=== PATIENT | female | born 1940 | race Caucasian/White ===

== ENCOUNTER → 2024-04-12 | Outpatient (CLI) | payer MEDICARE, BC ==
[2024-04-12 14:47] LABS: INR 2.3 (<1.2); Partial Thromboplastin Time 34.2 sec (22.0-30.0)
[2024-04-12 19:48] LABS: Basophils # (A) 0.03 X 10*3/uL (0.00-0.10); Basophils % (A) 0.4 %; Eosinophils # (A) 0.09 X 10*3/uL (0.04-0.35); Eosinophils % (A) 1.3 %; HCT 36.3 % (37.2-46.3); HGB 12.3 g/dL (12.0-15.0); Lymphocytes # (A) 1.47 X 10*3/uL (0.90-5.00); Lymphocytes % (A) 20.8 %; MCH 31.9 pg (27.0-32.0); MCHC 33.9 g/dL (32.0-37.0); MCV 94.3 FL (80.0-97.0); Mean Platelet Volume 9.8 FL (9.5-12.2); Monocytes % (A) 14.1 %; NRBC Per 100 WBC 0 X 10*3/uL (0.00-0.01); Neutrophils # (A) 4.47 X 10*3/uL (1.80-7.70); Neutrophils % (A) 63.3 %; Platelet Count 227 X 10*3/uL (140-440); RBC 3.85 X 10*6/uL (4.10-5.20); RDW 12.3 % (11.5-14.5); WBC 7.07 X 10*3/uL (4.50-10.00)
[2024-04-12 21:58] LABS: ALT 13 U/L (8-44); AST 15 U/L (13-35); Albumin 4.9 g/dL (3.8-4.9); Albumin/Globulin Ratio 1.88 Ratio (1.60-3.17); Alkaline Phosphatase 41 U/L (41-126); BUN/Creat Ratio 30.89 Ratio (12.00-20.00); Blood Urea Nitrogen 27.8 mg/dL (9.0-27.0); Calcium 10.1 mg/dL (8.7-10.3); Carbon Dioxide 24.4 mmol/L (21.6-31.8); Chloride 100 mmol/L (96-109); Globulin 2.6 g/dL (1.6-3.3); Glucose 95 mg/dL (70-110); Potassium 4.2 mmol/L (3.5-5.5); Sodium 139 mmol/L (135-145); Total Bilirubin 0.5 mg/dL (0.3-1.2); Total Protein 7.5 g/dL (6.2-8.2)
== END | disposition home or self-care (01) ==
LOC: LABPAT 12:57
PROVIDERS: ATTEND Orthopaedic Surgery
DX: Z01.818 Encounter for other preprocedural examination (principal); Z22.322 Carrier or suspected carrier of Methicillin resistant Staphylococcus aureus; M16.11 Unilateral primary osteoarthritis, right hip
CPT/HCPCS: 36415; 80053; 85025; 85610; 85730; 86850; 86900; 86901; 87070

== ENCOUNTER 2024-04-18 11:24 | Day surgery (SDC) | payer MEDICARE, BC ==
[~2024-04-18 11:24] MED LIST: TRANEXAMIC 1,000 MG/100ML-NACL 1,000 MG in SALINE 1 100ML.BAG IVPB PRN
[2024-04-18] MEDS: ACETAMINOPHEN TAB 500 MG TAB PO PRN (12:20)
[2024-04-18] MEDS: GABAPENTIN 300 MG CAP PO PRN (12:21)
[2024-04-18] MEDS: MELOXICAM 7.5 MG TAB PO PRN (12:21)
[2024-04-18] MEDS ORDERED: fentaNYL (PF) 50 MCG/ML 2 ML AMP IVP PRN (12:53)
[2024-04-18] MEDS ORDERED: fentaNYL (PF) 50 MCG/ML 2 ML AMP IV PRN (12:53)
[2024-04-18] MEDS ORDERED: HYDROmorphone 0.5 MG/0.5 ML SYRINGE IVP PRN ×4 (12:53→13:19)
[2024-04-18] MEDS ORDERED: LIDOCAINE 1% (10MG/ML) FOR IV START INTRADERMA PRN (12:53)
[2024-04-18] MEDS: ONDANSETRON 4 MG/2 ML VIAL IVP ONE (13:00)
[2024-04-18] MEDS: LACTATED RINGERS 1,000 ML IV SCH (13:00)
[2024-04-18] MEDS: DEXAMETHASONE SOD PHOSPHATE 4 MG/ML 1 ML VIAL IV ONE (13:00)
[2024-04-18] MEDS: IV FLUID CONTINUATION 1,000 ML IV ONE (13:03)
[2024-04-18 13:07] LABS: Glucose,Whole Blood 107 mg/dL (70-110)
[2024-04-18] MEDS: MIDAZOLAM 2 MG/2 ML VIAL IV PRN (13:16)
[2024-04-18] MEDS ORDERED: NALOXONE 0.4 MG/ML 1 ML VIAL IV PRN (13:19)
[2024-04-18] MEDS ORDERED: MAGNESIUM HYDROXIDE 2,400 MG/30 ML CUP PO PRN (13:19)
[2024-04-18] MEDS ORDERED: ONDANSETRON 4 MG/2 ML VIAL IVP PRN (13:19)
--- NOTE | 2024-04-18 13:27 | P.ANPRN ---
Procedure Note - Anesthesia - Nerve Block Performed Right Jimmy Single Time Out Performed: Yes ([id number]) Date of Procedure: 04/18/24 Procedure Start Time: 03:20 Procedure Stop Time: 13:25 Location of Patient: PreOp Indication: Acute Post-Operative Pain, Requested by Surgeon Sedation Type: Sedate with meaningful contact maintained Preparation: Sterile Prep, Sterile Dressing Position: Supine Catheter: None Needle Types: Pajunk Needle Gauge: 21 Ultrasound used to visualize needle placement: Yes Ultrasound used to observe medication spread: Yes Injectate: 0.5% Ropivacaine (see comment for volume) (21 mL of block solution containing 4 mg of dexamethasone, and 20 mL of 0.5% ropivacaine mixture injected after intermittent negative aspiration) Blood Aspirated: No Pain Paresthesia on Injection Noted: No Resistance on Injection: Normal Image Stored and Saved: Yes Events: Uneventful and Well Tolerated
[2024-04-18] MEDS ORDERED: DEXAMETHASONE SOD PHOSPHATE 4 MG/ML 1 ML VIAL ONE (13:37)
[2024-04-18] MEDS ORDERED: PROPOFOL 10 MG/ML 20 ML VIAL IV ONE (13:37)
[2024-04-18] MEDS ORDERED: TRANEXAMIC 1,000 MG/100ML-NACL PREMIX BAG ONE (13:37)
[2024-04-18] MEDS ORDERED: ePHEDrine 50 MG/ML 1 ML VIAL ONE (13:37)
[2024-04-18] MEDS ORDERED: ROPIVACAINE 5 MG/ML 30 ML VIAL ONE (13:37)
[2024-04-18 13:41] LABS: INR 1.2 (<1.2); Prothrombin Time 12.8 sec (10.0-12.5)
[2024-04-18] MEDS: ceFAZolin 1,000 MG in SODIUM CHLORIDE 0.9% 1,000 ML IRRIGATION ONE (13:42)
[2024-04-18] MEDS: ROPIVACAINE 5 MG/ML 30 ML VIAL MISCELLANE ONE ×2 (14:08→14:39)
--- NOTE | 2024-04-18 14:51 | P.OP ---
Date of Procedure: 04/18/24 Preoperative Diagnosis: Severe osteoarthritis right hip Postoperative Diagnosis: Severe osteoarthritis right hip Procedure(s) Performed: Right total hip arthroplasty with a direct anterior approach Implants: [employer] Polarstem standard size 1 with a collar [employer] R3, 3 hole hemispherical acetabular shell, 50 mm [employer] Reflection 6.5 mm cancellus screws, 25 mm 2 [employer] R3, XLPE 20 acetabular liner [employer] Oxinium femoral head 36 mm, +0 All components were press-fit. The articulation is Oxinium on polyethylene. Anesthesia: spinal Surgeon: Cr Leal Chinese Language Professor #1: Francesca Casillas Estimated Blood Loss (ml): 150 Pathology: none sent Condition: stable Disposition: PACU Indications for Procedure: After failure of conservative treatment we discussed the surgical and nons urgical treatment options at length. Patient wishes to proceed with a total hip arthroplasty with a direct anterior approach. Complications specific to this procedure were discussed at length, including but not limited to infection, leg length discrepancy, dislocation, nerve injury, and fracture. Covid-19 was also discussed at length with the patient, and they are aware of the current policies and procedures. The patient was given the option of delaying surgery, but they elect to proceed knowing these risks. Patient is aware of all these complications and informed consent was obtained Operative Findings: The operative findings are consistent with severe osteoarthritis of the right hip Description of Procedure: The patient was seen and evaluated in the preoperative area and the consent was reviewed. The operative site was marked with a skin marker. The patient verified the procedure and operative site. A MIKE block was placed by anesthesia in the preoperative area. The patient was then brought to the operating room and given preoperative antibiotics intravenously. 1 g of Tranexamic acid was also given intravenously. A spinal anesthetic was administered by the anesthesia department. The patient was then placed on the Woodburn table with the bony prominences well-padded. The hip area was then prepped with a ChloraPrep solution and draped in the usual sterile fashion. A universal timeout was then performed, which confirmed the patient's name, surgical site, ALLERGIES, and procedure being performed on the consent. Next the incision site was located at 1 cm distal and 4 cm lateral to the anterior superior iliac spine. The skin and subcutaneous tissues were sharply incised. Incision was carefully dissected down to the fascia overlying the tensor fascia mago muscle. This fascia was then incised in line with the muscle fibers. Care was taken to stay laterally in order to avoid injuring the lateral femoral cutaneous nerve. Next, using blunt finger dissection, the tensor fascia mago muscle was dissected off its investing fascia. The muscle was then carefully retracted laterally with a cobra retractor over the lateral neck of the femur. Next, the circumflex vessels were identified and cauterized using the Aquamantis device. The anterior hip capsule was then exposed. The capsule was then opened and an inverted T fashion. The retractors were then placed intracapsularly. The retractors were maintained intracapsular throughout the procedure. The proximal femur was then visualized. Fluoroscopic x-rays were then taken in order to evaluate the preoperative leg lengths. A small amount of traction was placed on the leg. The femoral neck was then osteotomized at the appropriate level above the lesser trochanter. A small wedge of bone was then removed from the remaining femoral head. Next, using a corkscrew the femoral head was removed from the acetabulum. On gross visual inspection, the femoral head had complete loss of articular cartilage and multiple periarticular osteophytes. The femoral head was then measured. Attention was then turned to the acetabulum. The acetabulum was exposed and any remaining labrum was excised. Sequential reaming of the acetabulum was performed using fluoroscopic guidance until there was a good bed of bleeding cancellus bone. When the appropriate size was reached, a trial was then placed. The position and fit of the trial was checked with fluoroscopy. The trial was then removed. Then, using fluoroscopic guidance, the final implant was impacted at 20 of anteversion and 40 of abduction, and fully seated in the acetabulum. 2 screws were then placed in the acetabulum. Again fluoroscopy was used to check position of the screws. Next, the liner was then impacted, with a 20 elevated liner located in the anterior superior quadrant. Component locking was confirmed. Attention was then directed to the femur. With the aid of the Woodburn table, the femur was externally rotated to approximately 130, extended, and adducted under the opposite leg. A side hook was then placed under the proximal femur, and the side hook elevator was used to elevate the proximal femur while releasing the capsule. Retractors were then placed. A capsular release was performed, as well as a release of the conjoined tendon, which afforded excellent visualization of the proximal femur. Next, a box osteotome was used to lateralize the proximal femur. A pier hand was then used to locate the femoral canal. Sequential broaching was then performed with appropriate size which afforded excellent fixation in the proximal femur. A trial was then placed with appropriate head and neck, and the hip was gently reduced with the aid of the Woodburn table. Fluoroscopy was then used to check position of the components, as well as to evaluate the leg lengths and offset. The leg lengths and offset were measured as closely as possible to ensure stability of the hip. The hip was then gently dislocated and the trials were then removed. Final implants were then impacted and the hip was again reduced. Final fluoroscopic x-rays confirmed that the components were in anatomic position. The leg lengths and offset were measured and were found to coincide with the trial measurements. The hip was also taken through range of motion, and found to be stable. The hip was then copiously irrigated with antibiotic solution with pulsatile lavage. The hip was then irrigated with Irrisept solution. The soft tissues were then injected with a ropivacaine solution. A second dose of 1 g of Tranexamic acid was also given intravenously. The fascia was then closed with 2-0 strata fix suture. The subcutaneous tissue was closed with 3-0 Vicryl. The subcuticular tissue was closed with 3-0 strata fix suture. The skin was then closed with Exofin skin glue. After the glue and dried, and Optifoam silver impregnated dressing was applied. The patient was then transferred to the recovery room in stable condition. The senior it assistant MELINA Daniel was required due to the complexity of surgery, and the need for skilled surgical forceps fabricator for positioning, draping, exposure, retraction, and closure of the wound.
--- NOTE | 2024-04-18 15:06 | FL ---
EXAMINATION TYPE: FL guidance operating room, XR Hip Limited RT DATE OF EXAM: 04/18/2024 3:01 PM COMPARISON: Pre Operative Images if available both CT/MRI or plain film CLINICAL INDICATION: Female, 84 years old with history of OA RT HIP; TECHNIQUE: FL guidance operating room, XR Hip Limited RT, multiple fluoroscopic images provided for p rocedure. Total fluoroscopy time: 22 seconds Total submitted images to PACS: 3 DAP: 2.4707 mGym2 Gycm2 uGym2 cGycm2 or equivalent. FINDINGS: Fluoroscopic images during internal fixation/arthroplasty demonstrate fixation hardware in appropriat e position. Hardware appears intact. No immediate complication identified. IMPRESSION: 1. No evidence for intraoperative complication. 2. Please see the operative/procedural note for further details. [facility], , 04/18/2024 3:03 PM
--- NOTE | 2024-04-18 15:27 | XR ---
EXAMINATION TYPE: XR Hip Limited RT DATE OF EXAM: 04/18/2024 3:24 PM COMPARISON: 04/18/2024 CLINICAL INDICATION: Female, 84 years old with history of Status post hip surgery, assess surgical al ignment; [facility] TECHNIQUE: XR Hip Limited RT; Frontal view FINDINGS: Post arthroplasty changes, hardware is intact, alignment is appropriate. No evidence of fra cture. Postoperative changes of the soft tissues with subcutaneous gas. No evidence of any acute osse ous pathology or joint dislocation. IMPRESSION: Hip arthroplasty with hardware intact and in appropriate alignment. No acute fracture. [facility], , 04/18/2024 3:25 PM
[2024-04-18] MEDS: SODIUM CHLORIDE 0.9% 1,000 ML IV SCH (17:56)
[2024-04-18] MEDS: WARFARIN 5 MG TAB PO ONE (19:32)
[2024-04-18] MEDS ORDERED: DIPHENOX-ATROP 2.5-0.025 MG 1 EACH TAB PO PRN (21:09)
[2024-04-18] MEDS: SENNOSIDES-DOCUSATE SODIUM 1 EACH TAB PO SCH (21:47)
[2024-04-18] MEDS: PROPAFENONE 150 MG TAB PO SCH (22:03)
[2024-04-18] MEDS: METOPROLOL TARTRATE 12.5 MG TAB PO SCH (22:03)
[2024-04-18] MEDS: ATORVASTATIN 10 MG TAB PO SCH (22:03)
[2024-04-18] MEDS: LATANOPROST 0.005% OPHTH DROPS 2.5 ML BTL RIGHT EYE SCH (22:04)
[2024-04-19 01:52] VITALS: RESP 16
[2024-04-19] MEDS: LEVOTHYROXINE 50 MCG TAB PO SCH (05:37)
[2024-04-19 08:32] LABS: MCH 32.1 pg (27.0-32.0); MCHC 34.5 g/dL (32.0-37.0); MCV 92.9 FL (80.0-97.0); Mean Platelet Volume 9.5 FL (9.5-12.2); NRBC Per 100 WBC 0 X 10*3/uL (0.00-0.01); Platelet Count 184 X 10*3/uL (140-440); RBC 3.12 X 10*6/uL (4.10-5.20); RDW 12.3 % (11.5-14.5); WBC 11.53 X 10*3/uL (4.50-10.00)
[2024-04-19 08:45] LABS: INR 1.15 sec (0.93-1.11); Prothrombin Time 12.3 sec (9.9-11.9)
[2024-04-19] MEDS: HYDROcodone/APAP 5-325MG 1 EACH TAB PO PRN ×2 (08:56→13:35)
[2024-04-19 09:51] LABS: Basophils # (M) 0 X 10*3/uL (0.00-0.10); Eosinophils # (M) 0 X 10*3/uL (0.04-0.35); Lymphocytes # (M) 0.92 X 10*3/uL (0.90-5.00); Monocytes # (M) 0.35 X 10*3/uL (0.20-1.00); Neutrophils # (M) 10.26 X 10*3/uL (1.80-7.70); Neutrophils % (M) 89 %
[2024-04-19] MEDS ORDERED: WARFARIN 2.5 MG TAB PO SCH (10:30)
[2024-04-19] MEDS ORDERED: FUROSEMIDE 10 MG/ML 4 ML VIAL IV STA (12:20)
[2024-04-19] MEDS ORDERED: LOSARTAN 50 MG TAB PO SCH (12:30)
[2024-04-19] MEDS: hydroCHLOROthiazide 25 MG TAB PO SCH (13:17)
[2024-04-19 13:24] VITALS: BP 109/62; PULSE 59; TEMP 97.8
--- NOTE | 2024-04-19 13:28 | P.DS ---
Providers Expected date of discharge: 04/19/24 Attending physician: Cr Leal Consults: 04/18/24 13:19 Consult Physician Routine Consulting Provider: Lj Raya Consult Reason/Comments: medical management Do you want consulting provider notified?: Yes Primary care physician: Terry Schmidt - Discharge Diagnosis(es) (1) Osteoarthritis of right hip Current Visit: Yes Status: Acute (2) S/P total hip arthroplasty Current Visit: Yes Status: Acute Hospital Course: This is an 84-year-old female with known history of degenerative arthritis of the right hip. The patient presented for evaluation as an outpatient. After discussion and consideration patient elects to proceed with total hip arthroplasty. The patient is seen preoperatively by Dr. Leal and medically cleared for surgery by their primary care physician. Patient is admitted to [facility] on 04/18/2024 for total hip arthroplasty. The procedure is performed without complication or sequelae. The patient is doing well postoperatively. Labs and vital signs are stable on day of discharge. On day of discharge patient's hip incision is healing well. There is minimal erythema. There is no drainage noted at this time. There is minimal soft tissue swelling to the hip and thigh. Patient has full foot and ankle motion without difficulty or pain. Calf is soft and nontender to palpation. Neurovascular status to the right lower extremity is intact. Patient is disch arged home in good condition. Please see med rec for accurate list of home medications. Plan - Discharge Summary Discharge Rx Participant: No New Discharge Prescriptions: New HYDROcodone/APAP 5-325MG [Orange 5-325] 1 - 2 tab PO Q6HR PRN #32 tab PRN Reason: Pain Sennosides [Senokot] 2 tab PO DAILY PRN #60 tablet PRN Reason: Constipation Ferrous Sulfate [Feosol] 325 mg PO DAILY #30 tab Continue Metoprolol Tartrate [Lopressor] 12.5 mg PO BID Diphenoxylate HCl/Atropine [Diphenoxylate HCl/Atropine 2.5-0.025] 1 tab PO 5XD PRN PRN Reason: Loose Stool Warfarin Sodium 2.5 mg PO SUMOWETHFRSA Potassium Chloride [Potassium Chloride ER (K-Dur GEQ)] 10 meq PO W/LUNCH Propafenone HCl 75 mg PO TID amLODIPine BESYLATE 5 mg PO HS rOPINIRole HCL [Requip] 0.25 mg PO HS Latanoprost [Latanoprost 0.005%] 1 drop RIGHT EYE HS Warfarin Sodium 5 mg PO TU Olmesartan Medoxomil [Benicar] 40 mg PO W/LUNCH Atorvastatin [Lipitor] 10 mg PO HS hydroCHLOROthiazide 25 mg PO W/LUNCH Levothyroxine Sodium [Synthroid] 50 mcg PO DAILY Discharge Medication List Atorvastatin [Lipitor] 10 mg PO HS 04/13/24 [History] Diphenoxylate HCl/Atropine [Diphenoxylate HCl/Atropine 2.5-0.025] 1 tab PO 5XD PRN 04/13/24 [History] Latanoprost [Latanoprost 0.005%] 1 drop RIGHT EYE HS 04/13/24 [History] Levothyroxine Sodium [Synthroid] 50 mcg PO DAILY 04/13/24 [History] Metoprolol Tartrate [Lopressor] 12.5 mg PO BID 04/13/24 [History] Olmesartan Medoxomil [Benicar] 40 mg PO W/LUNCH 04/13/24 [History] Potassium Chloride [Potassium Chloride ER (K-Dur GEQ)] 10 meq PO W/LUNCH 04/13/24 [History] Propafenone HCl 75 mg PO TID 04/13/24 [History] Warfarin Sodium 2.5 mg PO WE04/13/24 [History] Warfarin Sodium 5 mg PO TU 04/13/24 [History] amLODIPine BESYLATE 5 mg PO HS 04/13/24 [History] hydroCHLOROthiazide 25 mg PO W/LUNCH 04/13/24 [History] rOPINIRole HCL [Requip] 0.25 mg PO HS 04/13/24 [History] HYDROcodone/APAP 5-325MG [Orange 5-325] 1 - 2 tab PO Q6HR PRN #32 tab 04/18/24 [Rx] Sennosides [Senokot] 2 tab PO DAILY PRN #60 tablet 04/18/24 [Rx] Ferrous Sulfate [Feosol] 325 mg PO DAILY #30 tab 04/19/24 [Rx] Follow up Appointment(s)/Referral(s): [facility]azos,Home Care [NON-STAFF] - As Needed Terry Schmidt MD [Primary Care Provider] - 1 Week (office not answering please call to schedule appointment ) Cr Leal DO [Doctor of Osteopathic Medicine] - 05/01/24 1:00 pm (with Francesca) Patient Instructions/Handouts: Anterior Hip Replacement (DC) Activity/Diet/Wound Care/Special Instructions: Weightbearing as tolerated with walker. Leave dressing intact. Dressing may be removed by home care nurse or by patient in 7 days. Then change dressing twice daily until follow up. May shower with initial dressing intact and after removal. If dressing become saturated, please remove. Please resume Coumadin. Recommend use of compression stockings daily until follow up to help prevent swelling and blood clots. May remove at night before sleeping. Please follow-up with [facility] in 2 weeks and call with any questions or concerns, . daily BP check - when SBP >130 then resume amlodipine Discharge Disposition: HOME WITH HOME HEALTH SERVICES
[2024-04-19] MEDS ORDERED: WARFARIN 3 MG TAB PO ONE (18:00)
--- NOTE | 2024-04-19 21:11 | P.CONS ---
History of Present Illness - Reason for Consult Consult date: 04/19/24 Medical management Requesting physician: Cr Leal - Chief Complaint Right hip surgery - History of Present Illness This is a very pleasant 84-year-old patient, follows with Dr. Terry Schmidt. Patient underwent right total hip arthroplasty with direct anterior approach. Patient this morning did ambulate. Pain is controlled. No nausea vomiting. Did tolerate the breakfast. No dizziness or lightheadedness. Denies any cardiac history. Review of systems: GEN.: None EYES: None HEENT: None NECK: None RESPIRATORY: None CARDIOVASCULAR: None GASTROINTESTINAL: None GENITOURINARY: None MUSCULOSKELETAL: Joint pain LYMPHATICS: None HEMATOLOGICAL: None PSYCHIATRY: None NEUROLOGICAL: None Social history: Lives alone. Denies any history of smoking alcohol. INVESTIGATIONS, reviewed in the clinical context: April 19: White count 11.5 hemoglobin 10 platelets 184 INR 1.15 April 12: White count 7 hemoglobin 12.3 platelets 227 sodium 139 potassium 4.2 creatinine 0.9 Assessment plan: -Right total hip arthroplasty with direct anterior approach Activity as per Ortho. Coumadin resume. Pain control -Paroxysmal atrial fibrillation Lopressor 12.5 twice daily. Rythmol. Coumadin -Essential hypertension Lopressor 12.5 twice daily. Benicar 40 mg with lunch. Resume amlodipine when blood pressure above 130 systolic. Discussed with patient -Restless leg syndrome Requip 0.25 mg nightly -Primary osteoarthritis Pain medication as needed -Hypothyroid Synthroid 50 mcg a day -Acute postprocedure blood loss anemia expected from surgery Ferrous sulfate Care was discussed with the patient. Ferrous sulfate added. Hold amlodipine until systolic blood pressure equal above 130 with daily blood pressure checks. Discussed with the patient. Questions answered. Thank Dr. Leal Past Medical History Past Medical History: Atrial Fibrillation, GERD/Reflux, Hyperlipidemia, Hypertension, Thyroid Disorder Additional Past Medical History / Comment(s): hypothyroidism, migraines, IBS, hypoglycemia, glaucoma, restless leg sydrome History of Any Multi-Drug Resistant Organisms: None Reported Past Surgical History: Adenoidectomy, Tonsillectomy Additional Past Surgical History / Comment(s): 2 epithelial cyst removed from throat 2022, lumbar radio frequency ablation, colonoscopy, right anterior hip replacement Additional Past Anesthesia/Blood Transfusion Reaction / Comm: "The anesthesiologist told me I had a drop in my heart rate during colonoscopy." Past Psychological History: No Psychological Hx Reported Smoking Status: Never smoker Past Alcohol Use History: None Reported Past Drug Use History: None Reported - Past Family History Father Family Medical History: Myocardial Infarction ([place]) Brother(s) Family Medical History: Myocardial Infarction ([place]) Mother Additional Family Medical History / Comment(s): some type of blood clot d/t cancer Medications and Allergies Home Medications Medication Instructions Recorded Confirmed Type Atorvastatin [Lipitor] 10 mg PO HS 04/13/24 04/18/24 History Diphenoxylate HCl/Atropine 1 tab PO 5XD PRN 04/13/24 04/18/24 History [Diphenoxylate HCl/Atropine 2.5-0.025] Latanoprost [Latanoprost 0.005%] 1 drop RIGHT EYE HS 04/13/24 04/18/24 History Levothyroxine Sodium [Synthroid] 50 mcg PO DAILY 04/13/24 04/18/24 History Metoprolol Tartrate [Lopressor] 12.5 mg PO BID 04/13/24 04/18/24 History Olmesartan Medoxomil [Benicar] 40 mg PO W/LUNCH 04/13/24 04/18/24 History Potassium Chloride [Potassium 10 meq PO W/LUNCH 04/13/24 04/18/24 History Chloride ER (K-Dur GEQ)] Propafenone HCl 75 mg PO TID 04/13/24 04/18/24 History Warfarin Sodium 2.5 mg PO SUMOWETHFRSA 04/13/24 04/18/24 History Warfarin Sodium 5 mg PO TU 04/13/24 04/18/24 History amLODIPine BESYLATE 5 mg PO HS 04/13/24 04/18/24 History hydroCHLOROthiazide 25 mg PO W/LUNCH 04/13/24 04/18/24 History rOPINIRole HCL [Requip] 0.25 mg PO HS 04/13/24 04/18/24 History HYDROcodone/APAP 5-325MG [Anderson 1 - 2 tab PO Q6HR PRN #32 tab 04/18/24 Rx 5-325] Sennosides [Senokot] 2 tab PO DAILY PRN #60 tablet 04/18/24 Rx Ferrous Sulfate [Feosol] 325 mg PO DAILY #30 tab 04/19/24 Rx Allergies Allergy/AdvReac Type Severity Reaction Status Date / Time Aminoglycosides Allergy Nausea & Verified 04/18/24 12:17 Vomiting & Diarrhea aspirin Allergy Rash/Hives Verified 04/18/24 12:17 epinephrine Allergy Rapid Verified 04/18/24 12:17 Heart Rate erythromycin base Allergy Nausea & Verified 04/18/24 12:17 Vomiting & Diarrhea Latex, Natural Rubber Allergy Rash/Hives Verified 04/18/24 12:17 Penicillins Allergy Anaphylaxis Verified 04/18/24 12:17 Sulfa (Sulfonamide Allergy Rash/Hives Verified 04/18/24 12:17 Antibiotics) sulfamethoxazole Allergy Rash/Hives Verified 04/18/24 12:17 [From Bactrim] Tetracyclines Allergy Rash/Hives Verified 04/18/24 12:17 trimethoprim [From Bactrim] Allergy Rash/Hives Verified 04/18/24 12:17 Physical Exam Vitals: Vital Signs Temp Pulse Resp BP Pulse Ox 04/19/24 09:19 76 04/19/24 08:00 98.3 F 66 123/67 93 L 04/19/24 01:14 98.0 F 58 L 16 127/73 95 04/18/24 19:25 97.6 F 76 17 137/71 95 04/18/24 19:22 80 138/75 04/18/24 19:07 77 137/73 04/18/24 18:52 77 153/75 04/18/24 18:22 68 166/79 95 04/18/24 18:07 70 171/87 95 04/18/24 17:52 97.5 F L 67 156/75 96 04/18/24 16:59 57 L 12 157/70 95 04/18/24 16:30 60 12 152/71 96 04/18/24 16:08 58 L 12 156/74 96 04/18/24 15:53 54 L 12 142/68 98 04/18/24 15:38 58 L 12 144/66 94 L 04/18/24 15:23 53 L 12 138/62 100 04/18/24 15:08 96.8 F L 54 L 12 124/61 99 04/18/24 15:02 97.5 F L 74 17 155/69 93 L 04/18/24 13:27 55 L 16 155/67 100 04/18/24 13:02 98.2 F 59 L 18 188/82 100 Intake and Output 04/18/24 04/19/24 04/19/24 22:59 06:59 14:59 Intake Total 130 480 Balance 130 480 Intake: Intake, IV Titration 130 Amount Sodium Chloride 0.9% 1, 130 000 ml @ 65 mls/hr IV . [id number] [facility] Rx#:[id number] Oral 480 Other: Voiding Method Toilet Bedside Commode # Voids 3 1 Weight 70.6 kg Results CBC & Chem 7: 04/19/24 03:14 Labs: Abnormal Lab Results - Last 24 Hours (Table) 04/18/24 04/19/24 04/19/24 Range/Units 12:52 03:14 03:14 WBC 11.53 H (4.50-10.00) X 10*3/uL RBC 3.12 L (4.10-5.20) X 10*6/uL Hgb 10.0 L (12.0-15.0) g/dL Hct 29.0 L (37.2-46.3) % MCH 32.1 H (27.0-32.0) pg Neutrophils # (Manual) 10.26 H (1.80-7.70) X 10*3/uL Eosinophils # (Manual) 0 L (0.04-0.35) X 10*3/uL PT 12.8 H 12.3 H (10.0-12.5) sec INR 1.2 H 1.15 H (<1.2)
[2024-04-25] MEDS ORDERED: WARFARIN 5 MG TAB PO SCH (10:19)
== END 2024-04-19 13:57 | disposition home health service (06) ==
LOC: OR 11:24 → 4SSUR 15:05 → OR 04-19 13:57
PROVIDERS: ATTEND Orthopaedic Surgery
DX: M16.11 Unilateral primary osteoarthritis, right hip (principal); Z96.641 Presence of right artificial hip joint
CPT/HCPCS: 85610; 73501; 27130; J2250; J1100; J0690 ×2; J2405; J2795; 64999; 85025